=== PATIENT | female | born 1955 | race Caucasian/White ===

== ENCOUNTER 2019-02-13 08:20 | Day surgery (SDC) | payer OTHER ==
[~2019-02-13 08:20] MED LIST: EPINEPHrine 1 MG/ML 30 ML INJ ZFS
[2019-02-13] MEDS ORDERED: LACTATED RINGER'S 1,000 ML IV (09:30)
[2019-02-13] MEDS ORDERED: LABETALOL HCL 20MG INJ IV (10:30)
[2019-02-13] MEDS ORDERED: KETOROLAC 15 MG INJ IV (10:30)
[2019-02-13] MEDS ORDERED: HYDROmorphONE 1 MG/5 ML IV SYRINGE IV ×2 (10:30)
[2019-02-13] MEDS ORDERED: MEPERIDINE 25 MG INJ IV (10:30)
[2019-02-13] MEDS ORDERED: hydrALAzine 20 MG INJ IV (10:30)
[2019-02-13] MEDS ORDERED: ONDANSETRON 4 MG INJ IV (10:30)
[2019-02-13] MEDS ORDERED: CEFAZOLIN 1 GM INJ (10:44)
[2019-02-13] MEDS ORDERED: HYDROmorphONE 2 MG/ML SYG (10:44)
[2019-02-13] MEDS ORDERED: ONDANSETRON 4 MG INJ (10:44)
[2019-02-13] MEDS ORDERED: SUCCINYLCHOLINE CHLORIDE 100 MG/5 ML SYG IV (10:45)
[2019-02-13] MEDS ORDERED: PROPOFOL 20 ML (10:45)
[2019-02-13] MEDS: morphine SULFATE/PF (10 MG/10 ML) INJ (11:15)
[2019-02-13] MEDS: EPINEPHrine 1 MG/ML 30 ML INJ IRR (11:15)
[2019-02-13] MEDS ORDERED: HYDROCODONE/APAP (5/325) TAB PO ×2 (12:00)
== END 2019-02-13 16:09 | disposition home or self-care (01) ==
LOC: SDS 08:20
DX: S83.231D Complex tear of medial meniscus, current injury, right knee, subsequent encounter (principal); S83.281D Other tear of lateral meniscus, current injury, right knee, subsequent encounter; X58.XXXD Exposure to other specified factors, subsequent encounter; M65.861 Other synovitis and tenosynovitis, right lower leg; R73.03 Prediabetes
CPT/HCPCS: 29880